=== PATIENT | female | born 1990 | race African-American/Black ===

== ENCOUNTER 2018-08-03 18:22 | Emergency (ER) | payer MEDICAID ==
[2018-08-03] MEDS ORDERED: HYDROXYZINE PAMOATE 50 MG CAPSULE PO ONE (18:41)
--- NOTE | 2018-08-03 18:44 | ER Document Report ---
HPI - HPI Patient complains to provider of: Skin rash Time Seen by Provider: 08/03/18 18:34 Onset/Duration: Persistent Pain Level: Denies Context: Patient complains of pruritic skin rash that started to her trunk and has gradually started to spread to her back in the upper portions of her legs. Patient denies any new foods medications or detergents. She denies any chest pain or difficulty breathing. Patient denies any difficulty swallowing. Associated Symptoms: Other - Skin rash. denies: Fever, Headache Exacerbated by: Denies Relieved by: Denies Similar symptoms previously: No Recently seen / treated by doctor: No - ROS ROS below otherwise negative: Yes Systems Reviewed and Negative: Yes All other systems reviewed and negative - CONSTITUTIONAL Constitutional: DENIES: Fever - EENT EENT: DENIES: Sore Throat - CARDIOVASCULAR Cardiovascular: DENIES: Chest pain - RESPIRATORY Respiratory: DENIES: Trouble Breathing - GASTROINTESTINAL Gastrointestinal: DENIES: Patient vomiting - REPRODUCTIVE Reproductive: DENIES: : - DERM Skin Color: Normal Skin Problems: Rash Past Medical History - General Information source: Patient - Social History Smoking Status: Never Smoker Frequency of alcohol use: None Drug Abuse: None Occupation: Healthcare Lives with: Family Family History: Reviewed & Not Pertinent - Medical History Medical History: Negative Surgical Hx: Negative Vertical Provider Document - CONSTITUTIONAL Agree With Documented VS: Yes Exam Limitations: No Limitations General Appearance: WD/WN, No Apparent Distress - INFECTION CONTROL TRAVEL OUTSIDE OF THE [place] IN LAST 30 DAYS: No - HEENT HEENT: Atraumatic, Normal ENT Exam, Normocephalic - NECK Neck: Normal Inspection, Supple - RESPIRATORY Respiratory: Breath Sounds Normal, No Respiratory Distress - CARDIOVASCULAR Cardiovascular: Regular Rate, Regular Rhythm - GI/ABDOMEN Gastrointestinal: Abdomen Soft - BACK Back: Normal Inspection - MUSCULOSKELETAL/EXTREMETIES Musculoskeletal/Extremeties: JANENE DANIEL - NEURO Level of Consciousness: Awake, Alert, Appropriate Motor/Sensory: No Motor Deficit - DERM Integumentary: Warm, Dry, Rash - Patient with scaling plaque type rash to trunk with a few scattered lesions to lower extremity. Course - Re-evaluation Re-evalutation: 08/03/18 18:42 Patient with skin rash concerning for pityriasis. Patient nontoxic in appearance, no concern for anaphylaxis, or Osorio-Bolivar syndrome. Good return precautions discussed with patient. - Vital Signs Vital signs: Temp Pulse Resp BP Pulse Ox 98.6 F 56 L 14 127/70 H 99 08/03/18 18:30 08/03/18 18:30 08/03/18 18:30 08/03/18 18:30 08/03/18 18:30 Discharge - Discharge Clinical Impression: Pityriasis in adult Condition: Stable Disposition: HOME, SELF-CARE Instructions: Pityriasis [facility] ([facility]) Additional Instructions: Return immediately for any new or worsening symptoms Followup with your primary care provider, call tomorrow to make a followup appointment Prescriptions: Hydroxyzine HCl [Atarax 25 mg Tablet] 1 - 2 tab PO QID PRN #20 tablet PRN Reason: Triamcinolone Acetonide [Aristocort 0.1% Cream] 1 applic TP TID #60 gm Referrals: [facility] [Provider Group] - Follow up as needed
[2018-08-03 20:03] VITALS: BP 119/67
== END 2018-08-03 20:02 | disposition home or self-care (01) ==
LOC: ER 18:22
DX: L21.0 Seborrhea capitis (principal)
CPT/HCPCS: 99282; J3490

== ENCOUNTER → 2019-02-05 | Outpatient (CLI) | payer MEDICAID ==
--- NOTE | 2019-02-06 09:34 | EKG REPORT ---
SEVERITY:- NORMAL ECG - SINUS RHYTHM : Confirmed by: Jaymie Gaspar MD 05-Feb-2019 21:29:19
== END ==
LOC: OD 15:30
PROVIDERS: ATTEND Nurse Practitioner Acute Care
DX: I49.9 Cardiac arrhythmia, unspecified (principal)
CPT/HCPCS: 93005; 93010